=== PATIENT | male | born 1995 | race Caucasian/White ===

== ENCOUNTER 2020-12-25 00:28 | Emergency (ER) | payer BC | END 2020-12-25 03:25 | disposition left against medical advice (07) | LOC: ER1 00:28 | DX: Z53.21 Procedure and treatment not carried out due to patient leaving prior to being seen by health care provider (principal) ==

== ENCOUNTER 2020-12-30 05:37 | Emergency (ER) | payer OTHER ==
[2020-12-30 07:15] LABS: HEMOGLOBIN 14.2 gm/dl (14.0-17.5); RED BLOOD COUNT 4.85 M/UL (4.20-5.50); WHITE BLOOD COUNT 8.8 K/UL (4.5-11.0)
[2020-12-30 07:33] LABS: BUN/CREATININE RATIO 17 (0-10)
[2020-12-30] MEDS ORDERED: PROTONIX40 MG PO (13:14)
== END 2020-12-30 13:07 | disposition home or self-care (01) ==
LOC: ER1 05:37
PROVIDERS: Family Medicine
DX: K29.01 Acute gastritis with bleeding (principal)
CPT/HCPCS: 71045; 80053; 81001; 85025; 85379; 85610; 85730; 99284; Q9967